=== PATIENT | female | born 1995 | race African-American/Black ===

== ENCOUNTER 2016-11-25 18:43 | Emergency (ER) | payer OTHER ==
[~2016-11-25] VITALS: Ht 165.1 cm; Wt 60.5 kg
[2016-11-25] MEDS ORDERED: PRENTAB16 PO (18:51)
[2016-11-25] MEDS ORDERED: KEFL500C17 PO (18:51)
[2016-11-25 19:58] LABS: BASO % 0.4 % (0.0-1.0); EOS # 0.2 K/mm3 (0.0-0.50); EOS % 1.4 % (0.0-3.0); LARGE UNSTAINED CELL # 0.1 K/mm3 (0.0-0.4); LARGE UNSTAINED CELL % 0.9 % (0.0-4.0); LYMPH # 1.7 K/mm3 (1.5-6.5); LYMPH % 14.8 % (24.0-44.0); MEAN CORPUSCULAR HEMOGLOBIN 28.9 pg (27.0-33.0); MEAN CORPUSCULAR HGB CONC 32.3 g/dl (32.0-36.5); MEAN CORPUSCULAR VOLUME 89.6 fl (80.0-96.0); MONO # 0.3 K/mm3 (0.0-0.8); MONO % 2.3 % (0.0-5.0); NEUTROPHILS # 9.3 K/mm3 (1.8-7.7); NEUTROPHILS % 80.2 % (36.0-66.0); PLATELET COUNT, AUTOMATED 350 k/mm3 (150-450); RED CELL DISTRIBUTION WIDTH 12.7 % (11.5-14.5); WHITE BLOOD COUNT 11.6 K/mm3 (4.0-10.0)
[2016-11-25 20:08] LABS: INR 0.94
[2016-11-25] MEDS ORDERED: NS 1,000 ML IV ONE (20:15)
[2016-11-25] MEDS ORDERED: MORPHINE 4 MG/ML 1ML SYRINGE IV ONE (20:15)
[2016-11-25 20:19] LABS: ALBUMIN 3.9 GM/DL (3.2-5.2); ALBUMIN/GLOBULIN RATIO 0.98 (1.00-1.93); ALKALINE PHOSPHATASE 65 U/L (45-117); ALT/SGPT 17 U/L (12-78); ANION GAP 10 MEQ/L (8-16); AST/SGOT 11 U/L (15-37); BILIRUBIN,TOTAL 0.4 MG/DL (0.2-1.0); BLOOD UREA NITROGEN 9 MG/DL (7-18); CALCIUM LEVEL 8.8 MG/DL (8.5-10.1); CARBON DIOXIDE LEVEL 25 MEQ/L (21-32); CHLORIDE LEVEL 102 MEQ/L (98-107); CREATININE FOR GFR 0.71 MG/DL (0.55-1.02); GLOMERULAR FILTRATION RATE > 60.0 (>60); GLUCOSE, FASTING 86 MG/DL (70-105); POTASSIUM SERUM 3.5 MEQ/L (3.5-5.1); SODIUM LEVEL 137 MEQ/L (136-145); TOTAL PROTEIN 7.9 GM/DL (6.4-8.2)
--- NOTE | 2016-11-25 22:00 | REPUSA ---
Clinical history: vaginal bleeding. Findings: Real-time transabdominal and transvaginal ultrasound images of the pelvis were obtained. An anteverted uterus is noted, measuring 11.0 x 5.5 x 6.0 cm. The uterus demonstrates normal echotextur e and echogenicity. The endometrial stripe measures 29 mm in diameter, and his diffusely hyperechoic. The right ovary has been surgically absent. The left ovary measures 4.5 x 2.9 x 2.8 cm. There is a c omplex hyperechoic lesion within the left ovary measuring 2.1 cm in diameter. No adnexal masses are s een. Color Doppler flow is seen within the left ovary. There is no evidence of free fluid. Impression: 1. Diffuse, echogenic thickened endometrial. No evidence of it intrauterine at this time. 2. Right ovary is surgically absent. 3. Complex left ovarian cyst, which could be a corpus luteum cyst. 4. With these findings, differential diagnosis includes early , missed , or ectopic . Follow-up with serial serum beta hCG levels is recommended for further evaluation.
[2016-11-25] MEDS ORDERED: NORCOTAB PO (22:14)
[2016-11-25] MEDS ORDERED: NORCO 5/325MG TABLET (BULK FOR ED) PO ONE (22:15)
[2016-11-25 22:24] VITALS: BP 110/61
== END 2016-11-25 22:25 | disposition home or self-care (01) ==
LOC: M ED 18:43
DX: O02.1 Missed abortion (principal); O99.330 Smoking (tobacco) complicating pregnancy, unspecified trimester

== ENCOUNTER → 2017-03-28 | Outpatient (REF) | payer OTHER ==
[~2017-03-28] MED LIST: KEFL500C17 PO; NORCOTAB PO; PRENTAB16 PO
== END ==
LOC: M SFHCLERA 15:23
PROVIDERS: ATTEND Physician Assistant Medical
DX: J02.0 Streptococcal pharyngitis (principal)

== ENCOUNTER 2017-04-26 23:21 | Inpatient (IN) | payer OTHER ==
[2017-04-27 00:42] LABS: CONTROL LINE HCG INT CTR LINE PRESENT; HCG, SERUM QUALITATIVE NEGATIVE (NEGATIVE)
[2017-04-27 00:54] LABS: AMPHETAMINES LEVEL URINE NEGATIVE (NEGATIVE); BARBITURATES URINE NEGATIVE (NEGATIVE); BENZODIAZEPINES URINE NEGATIVE (NEGATIVE); CANNABINOIDS URINE NEGATIVE (NEGATIVE); COCAINE METABOLITE URINE NEGATIVE (NEGATIVE); METHADONE URINE NEGATIVE (NEGATIVE); OPIATES URINE NEGATIVE (NEGATIVE); PHENCYCLIDINE URINE NEGATIVE (NEGATIVE)
[2017-04-27 00:57] LABS: ALBUMIN 4.1 GM/DL (3.2-5.2); ALBUMIN/GLOBULIN RATIO 0.95 (1.00-1.93); ALKALINE PHOSPHATASE 76 U/L (45-117); ALT/SGPT 18 U/L (12-78); ANION GAP 7 MEQ/L (8-16); AST/SGOT 15 U/L (7-37); BILIRUBIN,DIRECT < 0.1 MG/DL (0.0-0.2); BILIRUBIN,TOTAL 0.3 MG/DL (0.2-1.0); BLOOD UREA NITROGEN 10 MG/DL (7-18); CALCIUM LEVEL 8.9 MG/DL (8.5-10.1); CARBON DIOXIDE LEVEL 25 MEQ/L (21-32); CHLORIDE LEVEL 111 MEQ/L (98-107); CREATININE FOR GFR 0.74 MG/DL (0.55-1.02); ETHYL ALCOHOL (ETHANOL) 0.093 % (0.000-0.010); GLOMERULAR FILTRATION RATE > 60.0 (>60); GLUCOSE, FASTING 77 MG/DL (70-105); HEMOGLOBIN 12.9 g/dl (12.0-16.0); MEAN CORPUSCULAR HEMOGLOBIN 28.2 pg (27.0-33.0); MEAN CORPUSCULAR HGB CONC 32.3 g/dl (32.0-36.5); MEAN CORPUSCULAR VOLUME 87.3 fl (80.0-96.0); PLATELET COUNT, AUTOMATED 337 10^3/uL (150-450); POTASSIUM SERUM 3.6 MEQ/L (3.5-5.1); RED BLOOD COUNT 4.58 10^6/uL (4.00-5.40); SALICYLATE LEVEL < 1.7 MG/DL (5.0-30.0); SODIUM LEVEL 143 MEQ/L (136-145); THYROID STIMULATING HORMONE 0.583 uIU/ML (0.358-3.740); TOTAL PROTEIN 8.4 GM/DL (6.4-8.2); WHITE BLOOD COUNT 7.5 10^3/uL (4.0-10.0)
[2017-04-27 01:00] LABS: ACETAMINOPHEN LEVEL < 2.0 UG/ML (10.0-30.0)
[2017-04-27] MEDS ORDERED: MOM 30ML SUSPENSION UDC PO (01:45)
[2017-04-27] MEDS: LORazepam 1 MG TAB PO ×2 (02:41→21:30)
[2017-04-27] MEDS: ACETAMINOPHEN TAB 650MG DOSE (2X325MG) PO (02:41)
[2017-04-27] MEDS ORDERED: BACITRACIN OINT 30GM TOP (08:45)
[2017-04-27] MEDS: PARoxetine 12.5 MG **CR** TAB PO (15:42)
[2017-04-27] MEDS: traZODone 50 MG TAB PO (20:58)
[2017-04-28] MEDS: PARoxetine 12.5 MG **CR** TAB PO (08:36)
[2017-04-28] MEDS: NICOTINE 21MG/24HR 1 EA TRANSDERMAL TD (08:36)
[2017-04-28] MEDS: HALOPERIDOL 5 MG TAB PO (19:43)
[2017-04-28] MEDS: traZODone 50 MG TAB PO (21:28)
[2017-04-28] MEDS: LORazepam 1 MG TAB PO (22:42)
[2017-04-29] MEDS: PARoxetine 12.5 MG **CR** TAB PO (10:01)
[2017-04-29] MEDS: NICOTINE 21MG/24HR 1 EA TRANSDERMAL TD (10:01)
[2017-04-29] MEDS: MAALOX 30 ML SUSP *UDC PO (16:48)
[2017-04-30] MEDS: NICOTINE 21MG/24HR 1 EA TRANSDERMAL TD (09:00)
[2017-04-30] MEDS: PARoxetine 12.5 MG **CR** TAB PO (09:05)
[2017-04-30] MEDS ORDERED: HALOPERIDOL 5 MG TAB PO (14:00)
[2017-04-30] MEDS ORDERED: diphenhydrAMINE 50 MG CAP PO (14:00)
== END 2017-04-30 15:00 | disposition home or self-care (01) | DRG 880 ==
LOC: M ED 23:21 → M ED INP 04-27 01:32 → M PSY 04-27 02:08
DX: F41.9 Anxiety disorder, unspecified (principal); F17.210 Nicotine dependence, cigarettes, uncomplicated; Z91.5 Personal history of self-harm; Z90.721 Acquired absence of ovaries, unilateral; Z79.899 Other long term (current) drug therapy